=== PATIENT | male | born 1950 | race Hispanic/Latino ===

== ENCOUNTER 2019-05-10 09:16 | Outpatient (CLI) | payer MEDICARE, MEDICAID ==
--- NOTE | 2019-05-10 11:00 | ULT ---
US Testicular W Doppler HISTORY: Right inguinal hernia. Testicular mass COMPARISON: None. FINDINGS: The right testis measures 4 x 2.4 x 2.8 cm in the left testis measures 4 x 2.3 x 2.4 cm. No testicula r mass is seen. Symmetric flow is demonstrated to both testes. There are 2 cysts in the right epididymal head, the larger measuring 9 mm. The left epididymis is nor mal. Sonographic evaluation of the groins bilaterally demonstrate no definite abnormalities. There is small bilateral hydroceles, larger on the right. IMPRESSION: 1. No evidence of testicular mass or torsion. 2. Left epididymal head cysts. 3. Small bilateral hydroceles, right greater than left.
== END 2019-05-10 09:17 | disposition home or self-care (01) ==
LOC: ULT 09:16
PROVIDERS: ATTEND Specialist
DX: K40.90 Unilateral inguinal hernia, without obstruction or gangrene, not specified as recurrent (principal); N50.89 Other specified disorders of the male genital organs; N50.3 Cyst of epididymis; N43.3 Hydrocele, unspecified
CPT/HCPCS: 76870; 93976

== ENCOUNTER 2019-06-01 06:41 | Day surgery (SDC) | payer MEDICARE, MEDICAID ==
[2019-05-31 10:40] VITALS: BMI 29.2
[2019-06-01] MEDS ORDERED: Midazolam HCl 2 mg/2 ml Vial ONE (06:54)
[2019-06-01] MEDS ORDERED: Fentanyl 100 MCG/2 ML VIAL ONE (06:54)
[2019-06-01 07:13] LABS: Anion Gap 12 mmol/L (10-20); BUN (Urea Nitrogen) 17 mg/dL (8.4-25.7); Calc. Creatinine Clearance 68 mL/min (70-130); Calcium 8.8 mg/dL (7.8-10.44); Carbon Dioxide 24 mmol/L (23-31); Chloride 107 mmol/L (98-107); Estimated GFR-MDRD 77; Glucose 96 mg/dL (80-115); Potassium 3.6 mmol/L (3.5-5.1); Sodium 139 mmol/L (136-145)
[2019-06-01 07:20] LABS: #Eosinphils 0.1 thou/uL (0.0-0.7); #Lymphocytes 1.6 thou/uL (1.20-3.40); #Monocytes 0.2 thou/uL (0.11-0.59); #Neutrophils 2.8 thou/uL (1.40-6.50); %Basophils 0.1 % (0.0-1.0); %Eosinophils 1.3 % (0.0-10.0); %Lymphocytes 34.9 % (21.0-51.0); %Monocytes 4.9 % (0.0-10.0); %Neutrophils 58.8 % (42.0-75.0); Hemoglobin 13.1 g/dL (14.0-18.0); Mean Corpuscular HGB CONC 35.5 g/dL (32.0-36.0); Mean Corpuscular Hemoglobin 31.5 pg (27.0-31.0); Mean Corpuscular Volume 88.5 fL (78.0-98.0); Mean Platelet Volume 8.5 fL (7.4-10.4); Platelet Count 122 thou/uL (130-400); RBC Distribution Width 13.1 % (11.5-14.5); Red Blood Cell (RBC) Count 4.17 mill/uL (4.70-6.10); White Blood Cell (WBC) Count 4.7 thou/uL (4.8-10.8)
[2019-06-01] MEDS ORDERED: Ketorolac Tromethamine 30 MG/ML VIAL ONE ×2 (07:20→10:38)
[2019-06-01] MEDS ORDERED: Acetaminophen 500 MG TAB ONE (07:20)
--- NOTE | 2019-06-01 07:40 | RAD ---
EXAM: Two views chest PROVIDED CLINICAL HISTORY: Preop COMPARISON: 04/13/2019 FINDINGS: Cardiac and mediastinal silhouette appears within normal limits. Lungs appear free of significant opa city. No pleural fluid or pneumothorax apparent. Sequela of remote trauma involving left clavicle and left cranial lateral chest wall redemonstrated. IMPRESSION: No evidence for an acute cardiopulmonary process.
[2019-06-01] MEDS ORDERED: Ondansetron PF 4 MG/2 ML Vial ONE (10:38)
[2019-06-01] MEDS ORDERED: PROPOFOL 200 MG/20 ML VIAL ONE (10:38)
[2019-06-01] MEDS ORDERED: Succinylcholine Chloride 20 MG/ML 10 ml SYRINGE FS ONE (10:38)
[2019-06-01] MEDS ORDERED: Lidocaine 1% PF 5 ML VIAL ONE (10:38)
[2019-06-01] MEDS ORDERED: Esmolol 100 MG/10 ML VIAL ONE (10:38)
[2019-06-01] MEDS ORDERED: Rocuronium Bromide 10 MG/ML (10ML VIAL) ONE (10:38)
[2019-06-01] MEDS ORDERED: Dexamethasone 20 MG/5 ML VIAL ONE (10:38)
[2019-06-01] MEDS ORDERED: Glycopyrrolate 0.2 MG/ML 5 ML SYRINGE ONE (10:38)
--- NOTE | 2019-06-01 16:48 | EKG ---
Test Reason : PREOP Blood Pressure : / mmHG Vent. Rate : 070 BPM Atrial Rate : 070 BPM P-R Int : 166 ms QRS Dur : 094 ms QT Int : 386 ms P-R-T Axes : 058 053 048 degrees QTc Int : 416 ms Sinus rhythm with Premature atrial complexes Early repolarization variant No previous ECGs available Confirmed by DR. Alvaro GOLDSTEIN ([id number]) on 06/01/2019 4:48:47 PM Referred By: CADEN Confirmed By:DR. Alvaro GOLDSTEIN
--- NOTE | 2019-06-02 13:09 | OP ---
DATE OF PROCEDURE: 06/01/2019 REOPERATIVE DIAGNOSIS: Right inguinal hernia. POSTOPERATIVE DIAGNOSIS: Bilateral inguinal hernia. PROCEDURE PERFORMED: Robotic bilateral inguinal hernia repair using large 3DMax mesh patch. ANESTHESIA: General endotracheal. INDICATIONS: The patient is a 69-year-old male. He had presented with obvious right inguinal hernia, he was taken to the operating room at this time for repair. DESCRIPTION OF OPERATION: Informed consent was obtained, the patient was taken to the operating room, where general endotracheal anesthesia was obtained with the patient in supine position. Goodrich catheter was placed, abdomen was prepped with ChloraPrep and draped in sterile fashion. Local anesthetic was infiltrated using 0.25% Marcaine with epinephrine and a transverse supraumbilical incision was created through which a Veress needle was passed in the peritoneal cavity. Pneumoperitoneum was established using carbon dioxide up to pressure of 15 mmHg. An 11 mm balloon tipped trocar was passed into the abdomen and camera was passed through this port. Under direct vision, 2 additional 8 mm robotic ports were placed at the supraumbilical level, one on either side of midline. The patient was placed into a Trendelenburg position and the robot was docked to the ports as well as the camera and the operation was continued from the robotic console. Examination within the abdomen revealed an obvious large dominant right inguinal hernia. There was obviously an indirect hernia. Attention was turned to the left side, where there was a smaller, but still obvious indirect hernia on the left. I decided to proceed with a bilateral inguinal hernia repair. Attention was turned first to the right side. A transverse peritoneal incision was created several centimeters superior to the hernia defect. Preperitoneal dissection was carried inferiorly using meticulous dissection and hemostasis. The pubic tubercle was identified on the medial aspect. The iliopubic tract was dissected extending laterally to create an adequate space for the mesh patch. In the central portion of the dissection, I dissected the fairly large hernia sac off the cord structures. There was a large dominant cord lipoma as well and this was also completely dissected. The space was fully developed without injury or complication. Attention was turned to the left side. A mirror image incision was created. Dissection was carried out in identical fashion identifying the same structures. The dissection was easier because of the hernia sac was much smaller. Attention was then turned to the right side. A large 3DMax mesh patch was placed in the right preperitoneal space. It was fixed in place with 2 interrupted sutures of 2-0 Vicryl, placing one to the pubic tubercle and one to the anterior abdominal wall just lateral to the epigastric vessels. This provided excellent coverage over the hernia defect. The peritoneum was then closed with a running suture of 3-0 Stratafix. The large cord lipoma and the hernia sac were both everted through the medial aspect of the closure and fixed at that location with the Stratafix suture. On the left side, there had also been a large dominant cord lipoma and this had been dissected in the same fashion. The mesh placement was identical and the closure was identical, also incorporating the hernia sac and the cord lipoma into the medial aspect of the closure. The fascia at the supraumbilical port site was closed with 0 Vicryl suture using a GraNee needle. All ports and instruments were removed under direct vision. Pneumoperitoneum was carefully evacuated. A 0.25% Marcaine with epinephrine was infiltrated at each port site. Skin edges approximated with 4-0 Monocryl subcuticular suture. Dermabond was placed over each incision. The patient tolerated the procedure well and was taken to recovery room in stable condition. Before the Goodrich catheter was removed, the bladder was backfilled with 200 mL of saline to allow assessment of postoperative voiding. Job ID: [id number]
== END 2019-06-01 12:40 | disposition home or self-care (01) ==
LOC: SDC 06:41
PROVIDERS: ATTEND Specialist
PROC: 0YUA4JZ Supplement Bilateral Inguinal Region with Synthetic Substitute, Percutaneous Endoscopic Approach (ICD-10-PCS; principal; 2019-06-01)
DX: K40.20 Bilateral inguinal hernia, without obstruction or gangrene, not specified as recurrent (principal); D17.6 Benign lipomatous neoplasm of spermatic cord; N50.89 Other specified disorders of the male genital organs; I10 Essential (primary) hypertension; Z79.899 Other long term (current) drug therapy
CPT/HCPCS: 49650; 71046; 80048; 85025; 93005; C1781; 36415; 93010; J0690; J1100; J1885; J2001; J2250; J2405; J2704; J3010

== ENCOUNTER 2019-09-05 14:02 | Outpatient (CLI) | payer MEDICARE, MEDICAID ==
--- NOTE | 2019-09-05 15:38 | CT ---
CT BRAIN WITHOUT CONTRAST: Date: 09/05/2019 HISTORY: Temporal headache. FINDINGS: There are changes of chronic small vessel ischemic disease in the periventricular white matter. No ev idence of acute infarct, hemorrhage, midline shift, or abnormal extra-axial fluid collections are see n. The ventricular size is appropriate and the basilar cisterns are patent. The bony calvarium is intact . There is inadequate aeration of the mastoid air cells. The visualized paranasal sinuses are well ae rated. IMPRESSION: No CT evidence of acute intracranial process. POS: [facility]
== END 2019-09-05 14:03 | disposition home or self-care (01) ==
LOC: BICCT 14:02
PROVIDERS: ATTEND Physician Assistant
DX: R51 Headache (principal); R41.3 Other amnesia
CPT/HCPCS: 70450

== ENCOUNTER 2020-02-11 13:18 | Inpatient (IN) | payer MEDICARE, MEDICAID ==
[2020-02-11] MEDS ORDERED: Ondansetron PF 4 MG/2 ML Vial IVP PRN (17:13)
[2020-02-11] MEDS ORDERED: Dextrose 5% in Water 1,000 ML IV PRN (17:13)
[2020-02-11] MEDS ORDERED: Dextrose 50% Abboject 50 ML SYRINGE SLOW IVP PRN (17:13)
[2020-02-11 17:40] VITALS: BMI 25.2
[2020-02-11 18:00] LABS: #Lymphocytes 0.9 thou/uL (1.20-3.40); #Monocytes 0.3 thou/uL (0.11-0.59); #Neutrophils 9.9 thou/uL (1.40-6.50); %Eosinophils 0.2 % (0.0-10.0); %Lymphocytes 8.2 % (21.0-51.0); %Monocytes 2.9 % (0.0-10.0); %Neutrophils 88.7 % (42.0-75.0); Hemoglobin 13.2 g/dL (14.0-18.0); Mean Corpuscular HGB CONC 35.5 g/dL (32.0-36.0); Mean Corpuscular Hemoglobin 31.4 pg (27.0-31.0); Mean Corpuscular Volume 88.5 fL (78.0-98.0); Mean Platelet Volume 8.6 fL (7.4-10.4); Platelet Count 128 thou/uL (130-400); RBC Distribution Width 12.5 % (11.5-14.5); White Blood Cell (WBC) Count 11.2 thou/uL (4.8-10.8)
[2020-02-11 18:05] LABS: INR-International Normal Ratio 1.2; PTT 29.2 sec (22.9-36.1); Prothrombin Time 14.9 sec (12.0-14.7)
[2020-02-11] MEDS: Acetaminophen 500 MG TAB PO SCH (18:06)
[2020-02-11] MEDS: Sodium Chloride 0.9% 1,000 ML IV SCH (18:07)
[2020-02-11] MEDS ORDERED: Amlodipine 10 MG TAB PO SCH (18:15)
[2020-02-11 18:18] LABS: CK (CPK) 472 U/L (30-200); Phosphorus 2.6 mg/dL (2.3-4.7)
[2020-02-11] MEDS ORDERED: Morphine 2 MG/ML VIAL SLOW IVP PRN (18:19)
[2020-02-11 18:24] LABS: Anion Gap 13 mmol/L (10-20); BUN (Urea Nitrogen) 18 mg/dL (8.4-25.7); Calc. Creatinine Clearance 84 mL/min (70-130); Calcium 8.9 mg/dL (7.8-10.44); Carbon Dioxide 26 mmol/L (23-31); Chloride 103 mmol/L (98-107); Estimated GFR-MDRD 90; Glucose 136 mg/dL (80-115); Magnesium 1.7 mg/dL (1.6-2.6); Potassium 3.4 mmol/L (3.5-5.1); Sodium 139 mmol/L (136-145)
[2020-02-11] MEDS ORDERED: Magnesium Sulfate 2 GM in Sodium Chloride 0.9% 100 ML IVPB SCH (18:32)
[2020-02-11] MEDS ORDERED: Potassium Phosphate 30 MMOL, Magnesium Sulfate 2 GM in Sodium Chloride 0.9% 250 ML IVPB SCH (18:45)
[2020-02-11] MEDS ORDERED: hydrALAZINE 20 MG/ML VIAL SLOW IVP PRN (19:41)
[2020-02-11 20:02] LABS: Magnesium 1.8 mg/dL (1.6-2.6); Phosphorus 2.5 mg/dL (2.3-4.7)
--- NOTE | 2020-02-11 20:03 | HP ---
REQUESTING PHYSICIAN: Dr. Griffin from [place] [facility]. CONSULTS: Neurosurgery, Dr. Spaulding. CHIEF COMPLAINT: Fall from standing, left skull fracture, intraparenchymal hemorrhage, subdural hemorrhage with loss of consciousness. HISTORY OF PRESENT ILLNESS: This is a 69-year-old gentleman, who was a transfer from [place] [facility] after a ground level fall. The patient is Qatari-speaking only, and through a special equipment technician, patient states that he was attempting to pull up a tree stump when it let loose and he fell backwards landing on the left side of his head. The patient did have a brief loss of consciousness. The patient was taken to the emergency room and evaluated at [place]. The patient denied any nausea or vomiting. The patient reported head pain and headache after hitting his head. The patient was hypertensive on arrival to the ER and multiple doses of labetalol were given with no improvement, so the patient was started on a Cardene drip. Highest blood pressure was noted to be 222/124. The patient does report history of hypertension, but has not been taking his lisinopril or Norvasc for some time now. The patient was a direct admit to the critical care unit as he was on a Cardene drip. On arrival to the IMCU, patient's blood pressure was 143 systolic and his Cardene drip was stopped. Neurosurgery PA was at the bedside doing a neurologic exam. The patient's GCS is 15. REVIEW OF SYSTEMS: A 10-point review of systems is negative unless otherwise indicated in the above HPI. PAST MEDICAL HISTORY: Hypertension non treated. PAST SURGICAL HISTORY: Inguinal hernia surgery 2019. SOCIAL HISTORY: Lives at home with his . Denies alcohol use, denies illicit drug use, denies history of smoking. ALLERGIES: NO KNOWN DRUG ALLERGIES. MEDICATIONS: None, but was previously taking amlodipine and lisinopril. PHYSICAL EXAMINATION: VITAL SIGNS: Temperature 98.6, pulse 78, blood pressure 167/101, respirations 18, SpO2 of 96% on room air. GENERAL: A well-appearing elderly male, awake, alert, in no distress, Qatari-speaking only, special equipment technician used. HEENT: Normocephalic, abrasion to left ear, hematoma to the helix portion, bright red blood in the ear canal, likely ruptured tympanic membrane but difficulty visualizing due to blood in the canal. 0.5 cm superficial laceration posterior to the left ear, 2 cm laceration to the inferior area of the left auricular. Eyes, pupils are equal, bilateral, 3 mm. Extraocular muscles are intact. No drainage from nose. Oropharynx is clear, mucous membranes moist, normal mouth exam. NECK: No cervical spine tenderness, normal range of motion. Trachea midline. BACK: Tenderness to the upper T-spine and lower back. No step-offs or deformity. RESPIRATORY: Good inspiratory and expiratory effort, bilateral breath sounds clear. No wheezing, rales, or rhonchi. CARDIOVASCULAR: Regular rate, regular rhythm. No murmurs. No pedal edema. ABDOMEN: Soft, nontender, nondistended. No peritoneal signs. EXTREMITIES: Moves all extremities, neurovascularly intact x4, no gross abnormalities or trauma noted to extremities. NEUROLOGIC: No focal deficits. GCS 15, cranial nerves 2 through 12 intact, strength 5/5 in all extremities. SKIN: Warm, dry, pink. LABORATORY DATA: WBC 11.2, RBC 4.20, hemoglobin 13.2, hematocrit 37.1, platelets 128. PT 14.9, INR 1.2, APTT 29.2. Sodium 139, potassium 3.4, chloride 103, carbon dioxide 26, BUN 18, creatinine 0.84, estimated GFR 90, glucose 136, calcium 8.9, phosphorus 2.6, magnesium 1.7, CK 472. DIAGNOSTIC DATA: 1. Chest x-ray, impression, no acute pulmonary findings, multiple old traumatic fractures of the left clavicle and left ribs. 2. Brain CT, impression, 3 cm x 2 cm acute intra-axial hematoma at lateral aspect of the right temporal lobe. Multiple small focal hemorrhages in the anterior portion of the right temporal lobe at the temporal tip, and possibly adjacent subarachnoid hemorrhage. There is subdural hematoma along the right side of the tentorium cerebelli. There is a nondisplaced linear fracture across the left mastoid bone, directed at the left middle ear canal, incompletely visualized. No mass effect, midline shift, obstructive hydrocephalus, or acute fracture. 3. C-spine CT impression, several small 0.4 cm pulmonary nodules seen in the lung apices. There is no evidence of acute cervical spine fracture or dislocation. Possible 3rd rib on the left fracture. ASSESSMENT: 1. Status post fall with loss of consciousness. 2. Left skull fracture, mastoid bone towards middle ear. 3. Likely ruptured tympanic membrane. 4. Left ear abrasion and superficial lacerations. 5. Right tentorium subdural hemorrhage. 6. Intraparenchymal hemorrhage of the right temporal lobe. 7. Possible 3rd left rib fracture versus old fracture. 8. Incidental finding of several small 0.4 mm pulmonary nodules of the lung apices. 9. History of hypertension, not on medications. PLAN: Admit to the CCU with q.1 hour neuro checks. Head of bed elevated 30 degrees at all times. Goal systolic blood pressure 150 and below. P.r.n. hydralazine for blood pressure control. We will restart patient's previous blood pressure medications tonight. Full liquid diet. Bedrest. Maintenance fluids normal saline 100 mL an hour. Neurosurgery plans to repeat head CT at 5 o'clock in the morning. We will also obtain an auditory ear canal CT on the left due to his bleeding and ruptured tympanic membrane. We will also obtain x-rays of the T and L-spine at that time as he is complaining of some pain. Speech Therapy to evaluate for swallowing and cognition. If the patient's blood pressure is controlled and not requiring any Cardene, the patient may be moved to the [facility]. The plan was discussed with the attending who agrees. The plan was discussed with the patient who agrees. Job ID: [id number] [facility]
[2020-02-11] MEDS: Senokot S 8.6-50 MG TAB PO SCH (20:26)
[2020-02-11] MEDS: Famotidine 20 MG TAB PO SCH (20:26)
[2020-02-12] MEDS: Acetaminophen 500 MG TAB PO SCH ×5 (00:10→23:57)
--- NOTE | 2020-02-12 00:20 | PRG ---
DATE OF SERVICE: 02/11/2020 SUBJECTIVE: The patient was seen this evening during rounds. He was sitting up in bed, awake and alert with no signs of acute distress. Nursing reported patient's blood pressure is much better controlled after oral home amlodipine. The patient moves all extremities with no focal neurological deficits noted. He reports his pain is well controlled after some Tylenol. Left-sided ear trauma does not appear to be worsening. He denies any changes in his auditory capabilities. OBJECTIVE: VITAL SIGNS: Temperature 97.4, pulse 76, respirations 18, oxygen saturation 93% on room air, blood pressure 123/78. GENERAL: Well-appearing elderly male, sitting up in bed with no signs of acute distress. PULMONARY: Equal chest rise and fall. Clear breath sounds bilaterally. No signs of acute respiratory distress. CARDIAC: Regular rate and rhythm. GASTROINTESTINAL: Abdomen is soft, nontender, nondistended. EXTREMITIES: 2+ pulse in all extremities. Gross motor and sensation intact. No significant swelling noted. Normal strength in bilateral upper and lower extremities. NEUROLOGIC: GCS is 15. Pupils equal, round, reactive to light bilaterally. ENT: Abrasion to auricle of left ear with some minimal drainage coming from the canal that has now dried up. He does have a very small superficial laceration to the scalp just posterior to the ear, which does not need to be sutured. Bleeding is controlled. ASSESSMENT: 1. Status post mechanical fall from standing. 2. Right temporal intraparenchymal hemorrhage. 3. Right tentorial subdural hemorrhage. 4. Mastoid and temporal bone fracture on the left. 5. Left ear abrasion. 6. History of hypertension, noncompliant. PLAN: Continue full-liquid diet. Continue IV fluids. Continue closely monitoring patient's GCS q.1 hour. Head of the bed at 30 degrees. Goal systolic blood pressure less than 160. Physical and Occupational Therapy to see the patient in the morning as well as Speech Language Pathology. The patient to receive repeat head CT in the morning as well as CT of the internal auditory canal. X-rays of the T and L-spine are also pending. The patient does not have any extremity neurological defects. Job ID: [id number]
--- NOTE | 2020-02-12 01:00 | CON ---
DATE OF CONSULTATION: 02/11/2020 HISTORY OF PRESENT ILLNESS: The patient is a 69-year-old male with past medical history of hypertension, who has been noncompliant on his medications, who presented as transfer from [facility] ER after he came by EMS to their facility for acute head injury. The patient reports he was attempting to pull a stump out of the ground when he fell backwards, striking the left side of his head on the ground. He denies any LOC. He developed significant headache and some confusion and was evaluated at [facility] ER with CT head and cervical spine. CT head was notable for a left temporal bone fracture and a left mastoid fracture. He also appears to have contrecoup injury with a right lateral temporal hematoma as well as traumatic subarachnoid hemorrhage along the right temporal tip and subdural blood that extends along the right tentorium. CT of the cervical spine was negative for acute injuries. The patient's platelets and coags were within normal limits. He denies any anticoagulant use at home. His blood pressure has significantly elevated in the emergency department, systolic greater than 220, therefore, the patient was started on Cardene drip with significant improvement. His blood pressure on arrival to our ICU was systolic 143. I visited the patient at the ICU bedside in A2 with GCS of 14, just some mild confusion, oriented to person and place, but not to the date. PAST MEDICAL HISTORY: Hypertension. PAST SURGICAL HISTORY: Hernia repair. SOCIAL HISTORY: The patient lives at home. He does not smoke, drink, or use any drugs. REVIEW OF SYSTEMS: Limited by current condition. ALLERGIES: NO KNOWN DRUG ALLERGIES. PHYSICAL EXAMINATION: CONSTITUTIONAL: Awake, alert, and oriented to person and place, but not to time. No acute distress. HEENT: Head, he has a laceration just posterior of the left ear. There is also some swelling along the left ear cartilage auricle. There is blood within the left ear canal and blood behind the left TM. It is difficult to fully assess whether his TM ruptured. No obvious CSF otorrhea. NECK: Nontender. Free active range of motion. No meningismus or nuchal rigidity. CARDIAC: Regular rate and rhythm. PULMONARY: Symmetric chest expansion. No evidence of dyspnea. MUSCULOSKELETAL: Free active range of motion of all extremities. No focal motor weakness or reflex asymmetry. No obvious deformities. NEUROLOGIC: Oriented to person and place. No gross motor deficits are appreciated. ASSESSMENT AND PLAN: The patient had mechanical fall while attempting to pull up a tree stump striking the left side of his head on the ground. The patient has left temporal and mastoid bone fractures and also contrecoup injury with right temporal hematoma along the lateral aspect of the temporal lobe, traumatic subarachnoid hemorrhage along the right temporal tip, and traumatic subdural blood along the right tentorium. We will plan to monitor him closely in the ICU with q.1 neuro checks. Head of the bed should be elevated 30 degrees. Systolic blood pressure should be kept below 150. We will monitor him closely and repeat a noncontrast head CT in the morning. I have discussed this plan with Dr. Spaulding, who is in agreement. Job ID: [id number] [facility]
[2020-02-12 03:20] LABS: #Lymphocytes 1.7 thou/uL (1.20-3.40); #Monocytes 0.7 thou/uL (0.11-0.59); #Neutrophils 5.1 thou/uL (1.40-6.50); %Basophils 0.3 % (0.0-1.0); %Eosinophils 0.2 % (0.0-10.0); %Lymphocytes 23.1 % (21.0-51.0); %Monocytes 8.9 % (0.0-10.0); %Neutrophils 67.5 % (42.0-75.0); Hemoglobin 11.8 g/dL (14.0-18.0); Mean Corpuscular HGB CONC 35.3 g/dL (32.0-36.0); Mean Corpuscular Hemoglobin 31.1 pg (27.0-31.0); Mean Corpuscular Volume 88.1 fL (78.0-98.0); Mean Platelet Volume 8.3 fL (7.4-10.4); Platelet Count 121 thou/uL (130-400); RBC Distribution Width 12.5 % (11.5-14.5); White Blood Cell (WBC) Count 7.5 thou/uL (4.8-10.8)
[2020-02-12 03:27] LABS: INR-International Normal Ratio 1.2; PTT 34.4 sec (22.9-36.1); Prothrombin Time 15.8 sec (12.0-14.7)
[2020-02-12 03:56] LABS: ALT (SGPT) 13 U/L (8-55); AST (SGOT) 22 U/L (5-34); Albumin 3.3 g/dL (3.4-4.8); Alkaline Phosphatase 63 U/L (40-110); Anion Gap 13 mmol/L (10-20); BUN (Urea Nitrogen) 17 mg/dL (8.4-25.7); Bilirubin, Total 0.5 mg/dL (0.2-1.2); Calc. Creatinine Clearance 89 mL/min (70-130); Calcium 8.1 mg/dL (7.8-10.44); Carbon Dioxide 25 mmol/L (23-31); Chloride 106 mmol/L (98-107); Estimated GFR-MDRD Greater than 90; Globulin 3.2 g/dL (2.4-3.5); Glucose 108 mg/dL (80-115); Magnesium 2.5 mg/dL (1.6-2.6); Phosphorus 4.1 mg/dL (2.3-4.7); Potassium 3.5 mmol/L (3.5-5.1); Protein, Total 6.5 g/dL (5.8-8.1); Sodium 140 mmol/L (136-145)
[2020-02-12] MEDS: Sodium Chloride 0.9% 1,000 ML IV SCH (05:04)
--- NOTE | 2020-02-12 07:24 | CT ---
PRELIMINARY REPORT/[facility]/EMERGENCY AFTER HOURS PROCEDURE EXAM: CT Head Without Intravenous Contrast. CLINICAL HISTORY: F/U HEAD TRAUMA TECHNIQUE: Axial computed tomography images of the head/brain without intravenous contrast. COMPARISON: CTSR - CT BRAIN WO CON - 02/11/2020 10:57 AM [facility] FINDINGS: Again noted is hemorrhagic contusion within the right posterior temporal lobe, unchanged. Small amount of subdural hemorrhage is again seen along the right tentorium and posterior falx, uncha nged. Question trace subarachnoid hemorrhage along the left superior frontal convexity on series 2, image 2 7, unchanged. Ventricles are stable. There is no evidence of mass-effect or midline shift. Calvarium, orbits and sinuses are unchanged. Fluid is again seen within bilateral maxillary sinuses with increased density. Possible mucus retention cyst or polyp within the left maxillary sinus with increased density. IMPRESSION: No significant change in hemorrhagic contusion within the right posterior temporal lobe and subdural hemorrhage along the right tentorium and posterior falx. Suggestion of trace subarachnoid hemorrhage along the left superior frontal convexity, unchanged. High density fluid again seen within the maxillary sinuses with possible mucus retention cyst or poly p in the left maxillary sinus with increased density. ELECTRONICALLY SIGNED BY: Sera Powell MD Feb 12, 2020 6:51:33 AM [facility] This report is intended for review by the ordering physician only, in accordance of law. If you recei ve this report in error, please call [facility] at [phone]. FINAL REPORT Exam: Head CT without contrast HISTORY: Head trauma. Fall. COMPARISON: 02/11/2020 FINDINGS: Hemorrhage: Redemonstration of intra-axial and extra-axial hemorrhage. The overall degree and distrib ution is similar to the previous examination. The largest intraparenchymal hematoma is along the right temporal region measuring 2.7 x 2.0 cm. Associated edema. Additional posttraumatic hematomas ar e noted in the medial inferior right temporal lobe. There is right parafalcine and right tentorial subdural hematoma. Degree of subarachnoid blood has slightly diminished. Brain parenchyma: Posttraumatic changes involving the right cerebrum are unchanged. Ventricular system: Ventricles and sulci are patent and symmetric. Calvarium: Redemonstration of a right temporal bone fracture. Sinuses and mastoid air cells: Stable opacification of the paranasal sinuses IMPRESSION: 1. This report is in agreement with initial report by [facility]. 2. Stable post-traumatic change. Transcribed Date/Time: 02/12/2020 7:30 AM
[2020-02-12] MEDS: Amlodipine 10 MG TAB PO SCH (07:34)
--- NOTE | 2020-02-12 08:06 | PRG ---
DATE OF SERVICE: 02/12/2020 SUBJECTIVE: The patient was seen and examined. I agree Tracey Savage's evaluation on 02/11/2020. The patient is Armenian-speaking only. The patient is a 69-year-old man, who fell backward, striking the left side of his head. He has been alert and appropriate throughout without focal findings. He was quite comfortable and appropriate in the bed today, although I was not able to interview him with a dry can tender. The patient had a transient bloody otorrhea, which has resolved. CT of the head reveals a nondisplaced left temporal bone fracture and right temporal contusion. CT findings are stable on repeat scan this morning. IMPRESSION AND PLAN: The patient can be mobilized to dismissal. I will arrange a followup head CT in 4 weeks. Job ID: [id number]
--- NOTE | 2020-02-12 08:13 | RAD ---
EXAM: 3 views of the lumbosacral spine HISTORY: Low back pain COMPARISON: None FINDINGS: 3 views of the lumbosacral spine shows slight wedging of the inferior endplate of the L1 ve rtebral body. This could represent an acute fracture. There is approximately 10% height loss. There are moderate degenerative changes throughout the lumbar spine with osteophyte formation. The sacroili ac joints are unremarkable. IMPRESSION: Possible acute compression fracture of L1.
--- NOTE | 2020-02-12 08:42 | CT ---
PRELIMINARY REPORT/[facility]/EMERGENCY AFTER HOURS PROCEDURE Exam: CT temporal bones History: Fracture. Comparison: February 102019 CT brain Findings: Acute intracranial abnormalities are present. Please refer to separate dedicated CT brain report. Right mastoid air cells and temporal bones are within normal limits. Posterior aspect of left temporal bone is excluded from the exam. Fluid is present within the left middle auditory canal . There is no ossicular disruption. Fluid is present left mastoid air cells. There is nondisplaced longitudinal fracture through the Pastor portion of the temporal bone. Impression: Longitudinal fracture left temporal bone. ELECTRONICALLY SIGNED BY: Jessica Villatoro MD Feb 12, 2020 6:31:33 AM [employer] This report is intended for review by the ordering physician only, in accordance of law. If you recei ve this report in error, please call [facility] at [phone]. FINAL REPORT Final report by Dr. [facility] after-hours study CT temporal bones noncontrast: 02/12/2020 4:45 AM HISTORY: 69-year-old male status post head trauma with temporal bone fracture. FINDINGS: Left side: There is a nondisplaced oblique transverse linear fracture lucency across the mastoid and tympanic po rtions of the left temporal bone, which reaches the lateral surface of the left middle ear cavity. The lower portion of the left epitympanum, entire mesotympanum, and entire hypotympanum, are totally opacified, probably by blood. This includes total opacification of the round window niche and oval window niche. There is no evidence of fracture, dislocation, or displacement of the left ossicles. There are multiple apparent tiny defects in the tegmen tympani and tegmen mastoideum. These could be foci of very thin bone, or could represent actual dehiscences covered by dura. No evidence of fracture extension into the cochlea, vestibule, semicircular canals, internal auditory canal, or vestibular aqueduct. Right side: There are also multiple tiny defects in the right tegmen tympani and tegmen mastoideum, similar to th e left side, which may or may not represent dehiscences. The right middle ear cavity and right mastoid antrum are clear. There is a paucity of pneumatized right mastoid air cells. No evidence of fracture extension into the carotid canals or jugular bulbs. Severe partial opacification of left maxillary sinus with mucus retention cyst and air-fluid level. Lesser degree of such partial opacification of right maxillary sinus. No major disagreement with preliminary report by [facility] (minor disagreement is that the pre liminary report stated that the fracture is in the petrous portion of the temporal bone, which is incorrect). IMPRESSION: 1) Nondisplaced fracture of mastoid and tympanic portion of left temporal bone. 2) Opacification of most of the left middle ear cavity and left mastoid antrum: Evidence for hemotymp trevon. 3) No obvious dislocation or disruption of the left ossicular chain. Transcribed Date/Time: 02/12/2020 8:58 AM
[2020-02-12] MEDS: Famotidine 20 MG TAB PO SCH ×2 (08:52→21:51)
[2020-02-12] MEDS: Polyethylene Glycol 3350 17 GM Packet PO SCH (08:52)
[2020-02-12] MEDS: Senokot S 8.6-50 MG TAB PO SCH ×2 (08:52→21:50)
[2020-02-12] MEDS: Lisinopril 20 MG TAB PO SCH (08:59)
--- NOTE | 2020-02-12 08:59 | RAD ---
Exam: Thoracic spine 3 views HISTORY: Fall. Pain. FINDINGS: AP, lateral and swimmer's view demonstrate 12 thoracic type vertebra. Thoracic spine verteb ral body heights are maintained. No fracture. Mild loss of disc space height throughout the thoracic spine IMPRESSION: No fracture.
[2020-02-12] MEDS ORDERED: FLU VACC QS2020-21(65YR UP)/PF 240 MCG/0.7 ML SYRINGE IM ONE (09:00)
[2020-02-12 12:37] LABS: SARS-CoV-2 MS2 Positive; SARS-CoV-2 N Gene Negative; SARS-CoV-2 S Gene Negative; SARS-CoV-2 by NAA Not Detected (NotDetected); SARS-CoV-2 orf1ab Negative
--- NOTE | 2020-02-12 23:55 | PRG ---
DATE OF SERVICE: 02/12/2020 SUBJECTIVE: The patient was seen this evening during rounds. He was sitting up in bed, resting comfortably and asleep, but no signs of acute distress. Nursing reported no acute events. OBJECTIVE: VITAL SIGNS: Temperature 97.4, pulse 75, respirations 16, oxygen saturation 95% on room air, and blood pressure 177/91. GENERAL: Well-appearing elderly male, sitting up in bed with no signs of acute distress. PULMONARY: Equal chest rise and fall. No signs of acute respiratory distress. ASSESSMENT: 1. Status post mechanical fall from standing. 2. Right temporal intraparenchymal hemorrhage and right tentorial subdural hemorrhage. 3. Left mastoid and temporal bone fractures. 4. Abrasion to left ear with superficial scalp laceration posterior to the left ear. 5. History of hypertension. PLAN: Continue current diet and pain regimen. Restart home antihypertensives. Continue physical and occupational therapy. The patient likely needing acute rehab versus home. GCS remains 15. Job ID: [id number] [facility]
[2020-02-13] MEDS ORDERED: Acetaminophen/Codeine 30-300mg Tablet PO PRN (04:32)
[2020-02-13] MEDS ORDERED: Cyclobenzaprine 10 MG TAB PO PRN (04:32)
[2020-02-13] MEDS: Acetaminophen 325 MG TAB PO SCH ×2 (05:14→11:12)
[2020-02-13 05:34] LABS: #Eosinphils 0.1 thou/uL (0.0-0.7); #Lymphocytes 1.8 thou/uL (1.20-3.40); #Monocytes 0.6 thou/uL (0.11-0.59); #Neutrophils 10.4 thou/uL (1.40-6.50); %Basophils 0.3 % (0.0-1.0); %Eosinophils 0.6 % (0.0-10.0); %Lymphocytes 13.7 % (21.0-51.0); %Monocytes 4.4 % (0.0-10.0); Hemoglobin 13.3 g/dL (14.0-18.0); Mean Corpuscular HGB CONC 34.3 g/dL (32.0-36.0); Mean Corpuscular Hemoglobin 30.2 pg (27.0-31.0); Mean Platelet Volume 8.8 fL (7.4-10.4); Platelet Count 170 thou/uL (130-400); RBC Distribution Width 12.5 % (11.5-14.5); Red Blood Cell (RBC) Count 4.41 mill/uL (4.70-6.10); White Blood Cell (WBC) Count 12.9 thou/uL (4.8-10.8)
[2020-02-13 05:59] LABS: Anion Gap 13 mmol/L (10-20); BUN (Urea Nitrogen) 13 mg/dL (8.4-25.7); Calc. Creatinine Clearance 89 mL/min (70-130); Calcium 8.9 mg/dL (7.8-10.44); Carbon Dioxide 25 mmol/L (23-31); Chloride 103 mmol/L (98-107); Estimated GFR-MDRD Greater than 90; Glucose 105 mg/dL (80-115); Phosphorus 2.5 mg/dL (2.3-4.7); Potassium 3.3 mmol/L (3.5-5.1); Sodium 138 mmol/L (136-145)
[2020-02-13 08:22] VITALS: TEMP 98
[2020-02-13] MEDS: Amlodipine 10 MG TAB PO SCH (08:25)
[2020-02-13] MEDS: Lisinopril 20 MG TAB PO SCH (08:25)
[2020-02-13] MEDS: Senokot S 8.6-50 MG TAB PO SCH (08:25)
[2020-02-13] MEDS: Famotidine 20 MG TAB PO SCH (08:25)
[2020-02-13] MEDS: Polyethylene Glycol 3350 17 GM Packet PO SCH (08:26)
[2020-02-13 13:05] VITALS: BP 160/87
--- NOTE | 2020-02-13 17:43 | DIS ---
DATE OF ADMISSION: 02/11/2020 DATE OF DISCHARGE: 02/13/2020 ATTENDING: Live Dale DO CONSULTS: Neurosurgery, Dr. Spaulding. PROCEDURE: None. PRIMARY DIAGNOSES: 1. Fall from standing, with loss of consciousness. 2. Left skull fracture, mastoid bone towards the middle ear, likely ruptured tympanic membrane, left ear abrasion and superficial lacerations, right tentorium subdural hemorrhage, intraparenchymal hemorrhage right temporal lobe, possible third left rib fracture versus old fracture, incidental findings of several small 0.4 mm pulmonary nodules of the lung apices. 3. Likely L1 compression fracture. SECONDARY DIAGNOSIS: Hypertension. DISCHARGE MEDICATIONS: 1. Acetaminophen 325 mg p.o. q.6 hours. 2. Tylenol No. 3 q.6 hours p.r.n. pain. 3. Norvasc 10 mg p.o. daily. 4. Flexeril 5 mg p.o. q.8 hours p.r.n. muscle spasms. 5. Pepcid 20 mg p.o. b.i.d. 6. Lisinopril 20 mg p.o. daily. 7. MiraLAX as needed for constipation. 8. Senokot as needed for constipation. No discontinued medications. HISTORY OF PRESENT ILLNESS AND HOSPITAL COURSE: This is a 69-year-old gentleman, who was a transfer from [facility] after a ground level fall. Patient was attempting to pull a tree stump when it let loose causing him to fall backwards hitting his left side of his head. Patient did have a brief loss of consciousness. There was no nausea or vomiting. Patient's GCS was 15. The patient was transferred for definitive care and neurosurgical capabilities. Patient initially was on a Cardene drip due to severe hypertension. Patient reports he used to take lisinopril and Norvasc, but has not been taking those. Patient's amlodipine was restarted on the day of admission. Cardene drip was able to be discontinued. Patient also was restarted on his lisinopril. The patient's repeat head CT was Stable. Neurosurgery was also notified of the likely L1 compression fracture. Neurosurgery indicated this did not require a brace or surgical intervention. Patient was placed on a pain regimen for his back pain. Speech, Physical Therapy, and Occupational Therapy worked with patient. Patient had some difficulties ambulating initially. It was recommended that patient would benefit from a rehab or swing bed for continued physical and occupational therapy. On the day of discharge, patient was examined by Dr. Dale. His vital signs were stable and his exam was unremarkable, including cardiopulmonary and GI exam. Patient was deemed stable for [facility] bed. DISPOSITION: Stable. DISCHARGE LOCATION: [facility]. DIET: Regular diet as tolerated. ACTIVITY: As tolerated. FOLLOWUP: Follow up with primary care physician for hypertension management. Follow up with Neurosurgery in four weeks with a repeat brain CT. No need to follow up with Trauma Services. Please call for any questions. The plan was discussed with the patient and , who agree. Job ID: [id number]
== END 2020-02-13 15:05 | disposition swing bed (61) | DRG 83 ==
LOC: CCU 16:30 → SURG A 02-12 17:29
PROVIDERS: ADMIT Specialist; ATTEND Specialist
DX: S06.5X9A Traumatic subdural hemorrhage with loss of consciousness of unspecified duration, initial encounter (principal); S32.010A Wedge compression fracture of first lumbar vertebra, initial encounter for closed fracture; S22.32XA Fracture of one rib, left side, initial encounter for closed fracture; S09.22XA Traumatic rupture of left ear drum, initial encounter; S02.19XA Other fracture of base of skull, initial encounter for closed fracture; W18.30XA Fall on same level, unspecified, initial encounter; Z20.828 Contact with and (suspected) exposure to other viral communicable diseases; S06.379A Contusion, laceration, and hemorrhage of cerebellum with loss of consciousness of unspecified duration, initial encounter; R91.1 Solitary pulmonary nodule; I10 Essential (primary) hypertension
CPT/HCPCS: 36415; 70450; 70480; 71045; 72072; 72100; 72125; 80048; 80053; 82550; 83735; 84100; 84484; 85025; 85610; 85730; 87635; 93005; J0360; J2270; J3475; J7030; U0003

== ENCOUNTER 2020-03-19 12:59 | Outpatient (CLI) | payer MEDICARE, OTHER ==
--- NOTE | 2020-03-19 16:08 | CT ---
CT Brain WO Con: 03/19/2020 1:10 PM CLINICAL HISTORY: Follow-up intraparenchymal contusion and subdural hematoma. IMAGING TECHNIQUE: Multiple CT images were obtained of the brain without IV contrast. COMPARISON: CT the brain dated February 12, 2020 FINDINGS: BRAIN: Evidence of acute infarct: None. Evidence of chronic ischemic change:Small lacunar infarctions involving the left globus pallidus are stable. Mild chronic small vessel white matter ischemic changes similar. Evidence of intracranial hemorrhage: Previously seen contusion involving the lateral margin of the r ight anterior temporal lobe has largely resolved. There is some residual vasogenic edema seen within the anterior right temporal lobe that persists from the prior exam. Majority of the subdural h ematoma involving the right tentorium has resolved. Evidence of brain volume loss:None. Evidence of midline shift: Third ventricle and septum pellucidum are midline. Ventricles: Normal. No hydrocephalus. SKULL: Small peripherally sclerotic lesions seen involving the left frontal skull are stable. These appear similar to comparison CT the brain dated 09/05/2019. VISUALIZED PARANASAL SINUSES: Clear. MASTOID AIR CELLS: Clear. EXTRACRANIAL SOFT TISSUES: Normal. IMPRESSION: 1. Resolution of the intraparenchymal contusion involving the lateral margin of the right anterior te mporal lobe. There is some [id number] residual vasogenic edema involving the subcortical white matter of the right temporal lobe. Continued CT follow-up to complete resolution is recommended . 2. Resolution of previously seen subdural hematoma predominantly involving the right tentorium.
== END 2020-03-19 13:00 | disposition home or self-care (01) ==
LOC: TBSIIMAG 12:59
PROVIDERS: ATTEND Neurological Surgery
DX: S06.5X0D Traumatic subdural hemorrhage without loss of consciousness, subsequent encounter (principal)
CPT/HCPCS: 70450

== ENCOUNTER 2020-05-13 09:19 | Outpatient (CLI) | payer MEDICARE, MEDICAID ==
[2020-05-13] MEDS ORDERED: Iopamidol-370 76% 500 ML 1 ML ONE (10:12)
--- NOTE | 2020-05-13 10:34 | CT ---
CT CHEST WITH CONTRAST CLINICAL INDICATION: Abnormal finding on imaging. Cough. Pulmonary nodules. COMPARISON: None FINDINGS: Aorta: Minimal vascular calcifications are present. Mild eccentric atherosclerotic plaque is seen in the region of the origin proximal left subclavian artery. Thoracic aorta is normal in caliber without evidence of an aortic dissection Lungs: There are several subcentimeter pulmonary nodules within the upper lobes bilaterally with larg est pulmonary nodule anterior aspect right upper lobe right measuring 5 mm and largest pulmonary nodule in the left upper lobe measuring approximately 4 mm. Visualized lung apices on CT cervical spi ne on 02/11/2020 demonstrated several small pulmonary nodules in each visualized lung apex. No consolidation or pleural effusion is seen within the lungs bilaterally. Mediastinum: No enlarged lymph nodes are seen by CT size criteria. Thyroid gland: Normal CT appearance. Osseous structures: Remote left-sided rib fractures are present with deformity of the left chest. Deg enerative changes are seen in the visualized lower cervical spine and to a lesser extent involving the thoracic spine. Chest wall: No abnormality visualized. Upper abdomen: Within normal limits for phase of imaging. IMPRESSION: 1. Multiple bilateral upper lobe pulmonary nodules. Multiple pulmonary nodules were seen in each visu alized lung apex on CT cervical spine on 02/11/2020. Largest pulmonary nodule is seen in the right upper lobe measuring 5 mm. Remainder of the pulmonary nodules measure 4 mm or less. Given multiplicit y of pulmonary nodules, metastatic disease could not be excluded based on this exam. Follow-up evaluation in 6 months to one year is recommended. 2. Remote left-sided rib fractures and rib deformities.
== END 2020-05-13 09:20 | disposition home or self-care (01) ==
LOC: BICCT 09:19
PROVIDERS: ATTEND Family Medicine
DX: R91.8 Other nonspecific abnormal finding of lung field (principal)
CPT/HCPCS: 71260; 82565; Q9967